=== PATIENT | female | born 1955 | race Two or more races ===

== ENCOUNTER 2023-11-21 10:13 | Outpatient (CLI) | payer OTHER | END 2023-11-21 10:15 | disposition home or self-care (01) | LOC: NUCLEAR 10:13 | DX: I11.0 Hypertensive heart disease with heart failure (principal) ==

== ENCOUNTER 2023-11-21 10:34 | Outpatient (CLI) | payer OTHER | END 2023-11-21 10:37 | disposition home or self-care (01) | LOC: MAMO-SONO 10:34 | DX: N64.4 Mastodynia (principal); Z12.31 Encounter for screening mammogram for malignant neoplasm of breast ==